=== PATIENT | female | born 1985 | race Caucasian/White ===

== ENCOUNTER → 2017-08-27 16:44 | Outpatient (CLI) | payer OTHER, SELFPAY ==
--- NOTE | 2017-08-27 16:44 | DT_ITS ---
This patient was seen during an EMR downtime August 20, 2017 - August 27, 2017. This patient may have a combination of paper and electronic documentation or all paper documentation. All documentation is viewable within the e-chart portion of [facility] for each patient visit.
--- NOTE | 2017-08-27 17:00 | RAD_ITS ---
STUDY: X-RAY - LEFT FOOT CLINICAL: Female, 32 years old. Pain, recent injury TECHNIQUE: Three view(s) of the foot were obtained. COMPARISON: None. FINDINGS: Bones: There are no acute osseous abnormalities. Joints: The visualized joints are unremarkable. Soft tissues: The soft tissues are unremarkable. Foreign body: None RAD/Foot min 3 Views IMPRESSION: No acute abnormalities are seen. Electronically Signed: Nubia Zuniga MD at 22:49 EDT Tel Direct: [phone], Service support ,
== END ==
PROVIDERS: Family Provider Family Medicine; PCP Family Medicine; Visit Provider Family Medicine
DX: M79.672 Pain in left foot (principal)
CPT/HCPCS: 73630

== ENCOUNTER → 2020-06-21 15:28 | Outpatient (CLI) | payer OTHER, SELFPAY ==
[2014-01-15 07:05] VITALS: BMI 28.8
[2020-06-21 17:51] LABS: Hematocrit 42.6 % (37-47); Hemoglobin 13.7 g/dL (12.0-15.0); Mean Corp Hgb Conc 32.2 g/dL (32-36); Mean Corpuscular Hgb 28.3 pg (27.0-32.0); Mean Platelet Vol. 10.1 fl (6.2-12.0); Platelet Count 339 K/mm3 (150-450); RBC Distribution Width CV 12.6 % (11.6-14.6); RBC Distribution Width SD 39.9 fl (35.1-43.9); Red Blood Count 4.84 M/mm3 (4.2-5.4); White Blood Count 10.2 K/mm3 (4.4-11.0)
[2020-06-21 17:59] LABS: Vitamin D,25 Hydroxy 18.5 ng/mL
[2020-06-23 16:08] LABS: Endomysial Antibody IgA Negative (Negative)
[2020-06-23 18:04] LABS: Immunoglobulin A 139 mg/dL (87-352); t-Transglutaminase IgA 7 U/mL (0-3)
== END ==
PROVIDERS: PCP Family Medicine; Referring Provider Internal Medicine Gastroenterology; Visit Provider Internal Medicine Gastroenterology
DX: R19.7 Diarrhea, unspecified (principal)
CPT/HCPCS: 36415; 82306; 82784; 83516; 85027; 86140; 86255

== ENCOUNTER → 2020-06-23 14:04 | Outpatient (CLI) | payer OTHER, SELFPAY | PROVIDERS: PCP Family Medicine; Referring Provider Internal Medicine Gastroenterology; Visit Provider Internal Medicine Gastroenterology | DX: Z11.52 Encounter for screening for COVID-19 (principal) | CPT/HCPCS: 87635; C9803; U0002 ==

== ENCOUNTER → 2020-06-29 12:49 | Outpatient (CLI) | payer OTHER, SELFPAY ==
[2014-01-15 07:05] VITALS: BMI 28.8
--- NOTE | 2020-06-29 12:56 | BD_ITS ---
STUDY: DUAL ENERGY X-RAY ABSORPTIOMETRY / DXA REASON FOR EXAM: Female, 35 years old. K90.0 -- CELIAC DISEASE TECHNIQUE: Bone Mineral Density (BMD) measurements of lumbar spine and bilateral hips were obtained. COMPARISON: None. FINDINGS: Lumbar Spine (L1-L4): g/cm2 (1.384) / T-score (1.8) / Z-score (1.8) Findings are suggestive of normal bone density with a low fracture risk. Left Femur Total: g/cm2 (1.065) / T-score (0.5) / Z-score (0.6) Left Femoral Neck: g/cm2 (1.038) / T-score (0.0) / Z-score (0.3) Right Femur Total: g/cm2 (1.088) / T-score (0.6) / Z-score (0.8) Right Femoral Neck: g/cm2 (1.058) / T-score (0.1) / Z-score (0.5) BD/Dexa Bone Density Study IMPRESSION: The patient is considered normal as outlined below according to World [employer] Organization (WHO) criteria with a low fracture risk. Reference Information: The T-score is the number of standard deviations above or below the standard which is normal for young adults at their peak bone mineral density. The World Health Organization (WHO) interprets the T-scores as follows: Above -1 Normal bone density Between -1 and -2.5 Osteopenia Equal to / or below -2.5 Osteoporosis As a practical clinical guideline, osteopenia may be graded as follows: Mild -1 through -1.5 Moderate -1.6 through -2.0 Severe -2.1 through -2.4 The Z-score is the number of standard deviations above or below age-matched controls. A Z-score of less than -1.5 would be considered abnormal. References: 1. NIH Osteoporosis and Related Bone Diseases www osteo.org 2. International Society for Clinical Densitometry www iscd.org 3. National Osteoporosis Foundation www nof.org Electronically Signed: Geovany Denis MD at 13:16 EDT , Service support ,
== END ==
PROVIDERS: PCP Family Medicine; Referring Provider Internal Medicine Gastroenterology; Visit Provider Internal Medicine Gastroenterology
DX: K90.0 Celiac disease (principal)
CPT/HCPCS: 77080

== ENCOUNTER 2021-06-12 13:19 | Emergency (ER) | payer OTHER, SELFPAY ==
[2021-06-12 13:19] VITALS: BP 164/96; PULSE 73; RESP 18; TEMP 36.4; O2SAT 98; BMI 36.9
--- NOTE | 2021-06-12 14:40 | RAD_ITS ---
HISTORY: Trauma, injury and pain EXAMINATION/TECHNIQUE: XR Shoulder Min 2 Views: COMPARISON: None FINDINGS: BONES/JOINTS: No acute fracture or dislocation. Preservation of the joint spaces. No sclerotic or destructive changes observed. SOFT TISSUES: No soft tissue swelling or gas. No radiopaque foreign body. RAD/Shoulder min 2 Views IMPRESSION: No acute bony abnormality. at 1614 Reported and signed by: Bj Cleaning MD Electronically Signed: Bj Cleaning MD at 16:12 EDT ,
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
== END 2021-06-12 16:31 | disposition home or self-care (01) ==
PROVIDERS: Emergency Provider Emergency Medicine; PCP Family Medicine; Visit Provider Emergency Medicine
DX: S46.911A Strain of unspecified muscle, fascia and tendon at shoulder and upper arm level, right arm, initial encounter (principal); F17.210 Nicotine dependence, cigarettes, uncomplicated; E66.9 Obesity, unspecified; V43.62XA Car passenger injured in collision with other type car in traffic accident, initial encounter
CPT/HCPCS: 73030; 99282

== ENCOUNTER → 2021-09-10 | Outpatient (CLI) | payer OTHER, SELFPAY ==
[2021-09-10 08:41] LABS: ALB/GLOB Ratio 1.1 RATIO (0.9-2.4); AST(SGOT) 14 U/L (15-37); Alanine Aminotransfer ALT/SGPT 24 U/L (13-56); Albumin, Serum 3.7 g/dL (3.2-5.0); Alkaline Phosphatase 71 U/L (45-117); Anion Gap 5 (5-15); BUN 18 mg/dL (7-18); BUN/Creat Ratio 23.5 RATIO (10-20); Calcium,Total 8.5 mg/dL (8.5-10.1); Chloride 108 mmol/L (98-107); Cholesterol 125 mg/dL (200); Creatinine, Serum 0.77 mg/dL (0.55-1.02); EST Glomerular Filtration Rate 90 mL/min (>60); Est Glom Filt Rate - Afr Amer 109 mL/min (>60); Globulin 3.4 g/dL (2.2-4.2); Glucose 93 mg/dL (74-106); High Density Lipoprotein 45 mg/dL; Potassium 3.9 mmol/L (3.5-5.1); Protein, Total 7.1 g/dL (6.4-8.2); Sodium Level 138 mmol/L (136-145); Triglycerides 55 mg/dL; Very Low Density Lipoprotein 11 mg/dL (5-40)
== END | disposition home or self-care (01) ==
PROVIDERS: PCP Family Medicine; Referring Provider Family Medicine; Visit Provider Family Medicine
DX: Z00.00 Encounter for general adult medical examination without abnormal findings (principal)
CPT/HCPCS: 36415; 80053; 80061

== ENCOUNTER 2021-12-28 20:29 | Emergency (ER) | payer OTHER, SELFPAY ==
[2021-12-28 20:30] VITALS: BP 138/79; PULSE 90; RESP 16; TEMP 36.2; O2SAT 95; BMI 34.0
[2021-12-28 20:33] VITALS: BP 138/79; PULSE 90; RESP 16; TEMP 36.2; O2SAT 95
--- NOTE | 2021-12-28 20:34 | RAD_ITS ---
STUDY: X-RAY CHEST REASON FOR EXAM: Female, 36 years old. SOB TECHNIQUE: Single AP portable view of the chest. COMPARISON: None. FINDINGS: The lungs are clear and expanded. There is no demonstrated pleural abnormality. Normal size heart. Normal mediastinum and vincent. Normal visualized pulmonary arteries. Normal visualized aortic arch and descending thoracic aorta. Normal visualized thoracic spine. Normal visualized ribs, clavicles, and shoulders. There is no demonstrated abnormality of the visualized soft tissue structures of the upper abdomen. RAD/Chest 1 View IMPRESSION: Normal x-ray examination of the chest. Electronically Signed: Rishi Panchal MD at 22:06 EDT ,
--- NOTE | 2021-12-28 21:42 | EX.ED.DYSGE1 ---
HPI History of Present Illness Chief Complaint: Shortness of Breath Informant: patient Onset/Context/Timing Onset: Days Narrative Narrative: Patient presents with chest heaviness and slight shortness of breath for the past week or so. She describes a pressure heavy sensation over the sternal area that is worse with a deep breath. She has had recent URI symptoms but tested negative for COVID. The worsening shortness of breath and chest pressure has been ongoing for the past week or so. She states she will note the pain is worse when she lies on her left side. She has not had recent fever. She is an appointment to see her PCP on the but because pain was worse today she presented to the emergency room. [facility] Medical History Celiac disease Pleurisy Home Medications citalopram 20 mg tablet 20 mg PO DAILY 12/28/21 [History Last Taken Unknown] fluticasone propionate 50 mcg/actuation nasal spray,suspension 2 spray intranasal DAILY 12/28/21 [History Last Taken Unknown] prednisone 20 mg tablet 40 mg PO DAILY #8 tabs 12/28/21 [Rx Last Taken Unknown] tizanidine 4 mg tablet 4 mg PO DAILY 12/28/21 [History Last Taken Unknown] Allergy/AdvReac Type Severity Reaction Status Date / Time amoxicillin [From Augmentin] Allergy Other Verified 12/28/21 20:33 clavulanic acid Allergy Other Verified 12/28/21 20:33 [From Augmentin] montelukast [From Singulair] Allergy Other Verified 06/12/21 13:21 Surgical History Hx of tubal ligation Social History Smoking Status: Current every day smoker tobacco type: cigarettes ROS ROS ED Constitutional Constitutional ED: Denies chills or fever(s) Eyes Eyes: Denies change in vision or discharge from eye(s) ENT ENT ED: Denies discharge from eye(s), rhinorrhea or sore throat Cardiovascular Cardiovascular: Reports chest pain; Denies palpitations Respiratory/Chest Respiratory/Chest: Reports dyspnea; Denies cough Gastrointestinal Gastrointestinal: Denies abdominal pain, diarrhea, nausea or vomiting Genitourinary Genitourinary ED: Denies difficulty urinating or dysuria Musculoskeletal Musculoskeletal: Denies back pain or extremity pain Integumentary Denies Abrasions or rash Neurologic Neurologic: Denies headache(s) or weakness Psychiatric Psychiatric: Denies anxiety or depression Allergic/Immunologic Allergic/Immunologic ED: Denies lip swelling or urticaria EXAM Physical Exam Const Vital Signs: 12/28/21 20:30 12/28/21 20:33 12/28/21 22:01 Temperature 97.1 F L 97.1 F L Temperature Source Temporal Temporal Pulse Rate 90 90 Respiratory Rate 16 16 Respiratory Effort Normal Non-Labored Respiratory Depth Normal Respiratory Pattern Normal Blood Pressure 138/79 H 138/79 H Blood Pressure Mean 98 98 Pulse Ox 95 95 Oxygen Delivery Method Room Air Room Air Positive well nourished and well developed General Appearance ED: well developed HEENT Reports normocephalic and head/scalp atraumatic Eyes PERRL and EOMs intact bilaterally Neck supple Chest Wall inspection of chest normal Chest Narrative: Mild reproducible chest wall tenderness. No crepitus. Resp normal respiratory effort and clear to auscultation bilaterally Cardio regular rate and regular rhythm GI normal to inspection, nondistended, normoactive bowel sounds Palpation: soft Extremity normal to inspection Neuro oriented x3 and no sensory deficits noted Sensorium / Orientation: alert Motor Exam: strength 5/5 throughout Psych mental status grossly normal Skin no rashes or lesions noted MDM MDM MDM Narrative Medical decision making narrative: Patient was given a dose of IV Toradol. EKG, chest x-ray, lab work obtained. Lab Data Attestation: I reviewed the patient's lab results. Labs: Laboratory Results - last 24 hr 12/28/21 12/28/21 12/28/21 21:50 21:50 21:50 WBC 9.0 RBC 4.35 Hgb 12.5 Hct 37.6 MCV 86.4 MCH 28.7 MCHC 33.2 RDW Std Deviation 40.9 RDW Coeff of Vlad 13.0 Plt Count 279 MPV 9.7 Immature Gran % (Auto) 0.200 Neut % (Auto) 66.8 Lymph % (Auto) 21.6 [place] % (Auto) 8.2 Eos % (Auto) 2.8 Baso % (Auto) 0.4 Absolute Neuts (auto) 6.0 Absolute Lymphs (auto) 1.95 Nucleated RBC % 0 D-Dimer Quant (PE/DVT) 0.59 H* Sodium 140 Potassium 3.5 Chloride 108 H Carbon Dioxide 25.0 Anion Gap 7 BUN 14 Creatinine 0.74 Estim Creat Clear Calc 108.78 Est GFR (MDRD) Af Amer 114 Est GFR (MDRD) Non-Af 94 BUN/Creatinine Ratio 19.0 Glucose 93 Calcium 9.1 Troponin I High Sens 4 Serum , Qual 12/28/21 21:50 WBC RBC Hgb Hct MCV MCH MCHC RDW Std Deviation RDW Coeff of Vlad Plt Count MPV Immature Gran % (Auto) Neut % (Auto) Lymph % (Auto) [place] % (Auto) Eos % (Auto) Baso % (Auto) Absolute Neuts (auto) Absolute Lymphs (auto) Nucleated RBC % D-Dimer Quant (PE/DVT) Sodium Potassium Chloride Carbon Dioxide Anion Gap BUN Creatinine Estim Creat Clear Calc Est GFR (MDRD) Af Amer Est GFR (MDRD) Non-Af BUN/Creatinine Ratio Glucose Calcium Troponin I High Sens Serum , Qual NEGATIVE Radiography Diagnostic Testing: Clinical Impression(s) from Imaging Studies Chest X-Ray 12/28/21 20:34 IMPRESSION: Normal x-ray examination of the chest. Electronically Signed: Rishi Panchal MD at 22:06 EDT , Chest CTA 12/28/21 22:19 IMPRESSION: Normal CTA chest examination, without a demonstrated pulmonary embolism or arterial dissection. Electronically Signed: Rishi Panchal MD at 23:09 EDT , EKG Initial EKG: Attestation: I personally reviewed and interpreted this EKG as follows: Interpretation: Sinus Rhythm (Sinus at 76 with no acute ischemia.) Treatment and Re-Evaluation Narrative: On repeat evaluation patient resting comfortably. EKG reveals no acute ischemia. Chest x-ray per my interpretation reveals no focal infiltrate. CBC and chemistry studies unremarkable. Troponin is normal. D-dimer is slightly elevated at 0.59. test negative. Patient is sent for CTA of the chest. This reveals no evidence of pulmonary embolism. No other acute findings noted. Patient does have reproducible tenderness around the sternum with recent viral syndrome. This may represent costochondritis. She will be treated with a short burst of steroids. She has an appointment with her primary care physician on the . Return instructions provided. Discharge Plan Triage Chief Complaint: Shortness of Breath ED Provider: Nubia Giron Dx/Rx/DC Orders Clinical Impression: Costochondritis Instructions: ED Chest Wall Pain, Costochondritis Prescriptions: New prednisone 20 mg tablet 40 mg PO DAILY Qty: 8 0RF No Action tizanidine 4 mg tablet 4 mg PO DAILY Label Comments: take 1 tablet by mouth once daily citalopram 20 mg tablet 20 mg PO DAILY Label Comments: take 1 tablet by mouth once daily fluticasone propionate 50 mcg/actuation spray,suspension 2 spray INTRANASAL DAILY Label Comments: instill 2 sprays into each nostril once daily Primary Care Provider: Germán Mendez Referrals: Germán Mendez DO [Primary Care Provider] - [facility] appointment Disposition Disposition: Home, Self Care
[2021-12-28 21:55] LABS: Absolute Lymphocyte Count 1.95 X10^3/uL (0.83-4.51); Basophil# 0.04 X10^3/uL; Basophil% 0.4 % (0-1); Eosinophil# 0.25 X10^3/uL; Eosinophils% 2.8 % (0-5); Hematocrit 37.6 % (37-47); Hemoglobin 12.5 g/dL (12.0-15.0); Lymphocyte # 1.95 X10^3/ul (0.83-4.51); Lymphocyte % 21.6 % (19-41); Mean Corp Hgb Conc 33.2 g/dL (32-36); Mean Corpuscular Hgb 28.7 pg (27.0-32.0); Mean Corpuscular Volume 86.4 fL (81-99); Mean Platelet Vol. 9.7 fl (6.2-12.0); Monocyte# 0.74 X10^3/uL; Monocyte% 8.2 % (0-10); NRBC Flagged by Analyzer 0 % (0-5); Neutrophil # 6.02 X10^3/uL (2.7-7.7); Neutrophil % 66.8 % (47-70); Platelet Count 279 K/mm3 (150-450); RBC Distribution Width SD 40.9 fl (35.1-43.9); Red Blood Count 4.35 M/mm3 (4.2-5.4)
--- NOTE | 2021-12-28 22:00 | EKG12_ITS ---
Test Reason : DYSRHYTHMIA Blood Pressure : / mmHG Vent. Rate : 076 BPM Atrial Rate : 076 BPM P-R Int : 146 ms QRS Dur : 102 ms QT Int : 418 ms P-R-T Axes : 055 034 034 degrees QTc Int : 470 ms Normal sinus rhythm Normal ECG Confirmed by HIRAM MAX, CHERELLE ([id number]), primer expeditor and drier ARIANA PIRES ([id number]) on 12/29/2021 2:06:37 P M Referred By: LILLIE Confirmed By:KOSTAS GANDHI MD
[2021-12-28 22:07] LABS: Internal QC Validated? YES +Cl - CLEAR BKGD; Pregnancy, Serum, hCG Quali. NEGATIVE Negative
[2021-12-28 22:15] LABS: Anion Gap 7 (5-15); BUN 14 mg/dL (7-18); Calcium,Total 9.1 mg/dL (8.5-10.1); Chloride 108 mmol/L (98-107); Creatinine, Serum 0.74 mg/dL (0.55-1.02); EST Glomerular Filtration Rate 94 mL/min (>60); Est Glom Filt Rate - Afr Amer 114 mL/min (>60); Estimated Creatinine Clearance 108.78 ml/min; Glucose 93 mg/dL (74-106); Potassium 3.5 mmol/L (3.5-5.1); Sodium Level 140 mmol/L (136-145); Troponin-I HS 4 pg/mL (3.0-54.0)
[2021-12-28 22:16] LABS: D-Dimer Quantitative (DVT/PE) 0.59 FEU/ug/m (0.27-0.49)
--- NOTE | 2021-12-28 22:19 | CT_ITS ---
STUDY: CTA CHEST REASON FOR EXAM: Female, 36 years old. CP, dyspnea, elevated d-dimer RADIATION DOSAGE (If Supplied By Facility): CTDIvol = ( 14.21 ) mGy, DLP = ( 525.96 ) mGycm TECHNIQUE: The examination was performed with the intravenous administration of IV 100mL Isovue-370. Post-processing of the angiographic images was performed, with multiplanar reformation and 3D reconstruction. Individualized dose optimization techniques were used for this CT. COMPARISON: Chest x-ray earlier today FINDINGS: Normal enhancement of the main pulmonary artery and right and left pulmonary arteries. Normal enhancement of the bilateral peripheral pulmonary arteries. There is no demonstrated pulmonary embolism. Normal thoracic aorta and visualized great vessels. There is no demonstrated aortic dissection. Normal heart and pericardium. Normal mediastinum. Normal hilar regions. Normal visualized trachea and bronchi. The lungs are well expanded. Normal pulmonary parenchyma. Normal pleura. Normal chest wall structures. Normal osseous structures. Normal visualized upper abdomen. CT/CTA Chest W/WO Contrast IMPRESSION: Normal CTA chest examination, without a demonstrated pulmonary embolism or arterial dissection. Electronically Signed: Rishi Panchal MD at 23:09 EDT ,
[2021-12-28] MEDS: predniSONE 20 MG Tablet 40 MG PO (23:23)
[2021-12-28 23:25] VITALS: BP 134/78; PULSE 79; RESP 16; O2SAT 97
== END 2021-12-28 23:26 | disposition home or self-care (01) ==
PROVIDERS: Emergency Provider Emergency Medicine; PCP Family Medicine; Visit Provider Emergency Medicine
DX: M94.0 Chondrocostal junction syndrome [Tietze] (principal); R06.02 Shortness of breath; F17.210 Nicotine dependence, cigarettes, uncomplicated; Z79.899 Other long term (current) drug therapy
CPT/HCPCS: 71045; 71275; 80048; 84484; 84703; 85025; 85379; 93005; 99285

== ENCOUNTER → 2022-05-24 | Outpatient (CLI) | payer OTHER, SELFPAY ==
[2022-05-24 11:03] LABS: Mucous, Urine 0 SEEN /hpf (<or=2+)
[2022-05-24 11:28] LABS: Color, Urine Yellow (Yellow); Glucose, Dipstick Normal (Normal); Ketone-Dipstick Negative (Negative); Leukocyte Esterase-Dipstick 100 /ul (Negative); Nitrite-Dipstick Negative (Negative); Occult Blood-Urine 150 /ul (Negative); Protein-Dipstick Negative (Negative); Specific Gravity, Urine 1.025 (1.002-1.030); Urine Bilirubin Dipstick Negative (Negative); Urine Clarity Sl. Cloudy (Clear); Urine Urobilinogen Normal (Normal)
[2022-05-24 11:45] LABS: Bacteria 1+ /hpf (None Seen); Red Blood Cells-Urine 10-25 SEEN /hpf (0-5); Squamous Epithelial Cells - UA 5-10 SEEN /hpf (5-10); White Blood Cells 10-25 SEEN /hpf (0-5)
[2022-05-24 11:49] LABS: CPK Total, Creatine Kinase 55 U/L (26-192)
[2022-05-24 12:26] LABS: Hepatitis B Surface Antibody Reactive; Hepatitis B Surface Antigen Non-Reactive (Nonreactive); Hepatitis C Antibody Non-Reactive (Nonreactive)
[2022-05-25 14:09] LABS: Complement C3 130 mg/dL (82-167)
[2022-05-25 19:45] LABS: CCP IgG Antibodies 6 units (0-19); Hepatitis B Core Ab Total Negative (Negative)
== END | disposition home or self-care (01) ==
LOC: LAB 10:54
PROVIDERS: PCP Family Medicine; Referring Provider Internal Medicine Rheumatology; Visit Provider Internal Medicine Rheumatology
DX: R76.0 Raised antibody titer (principal); M79.18 Myalgia, other site
CPT/HCPCS: 36415; 81001; 81002; 82550; 86038; 86160; 86200; 86225; 86235; 86704; 86706; 86803; 87340

== ENCOUNTER → 2022-11-27 | Outpatient (CLI) | payer OTHER, SELFPAY ==
[2022-11-27 07:55] LABS: Ferritin 30 ng/mL (8-252); Iron 63 ug/dL (50-170); Iron Binding Capacity,Total 348 ug/dL (250-450); PERCENT IRON SATURATION 18.1 % (15.0-55.0)
[2022-11-27 12:36] LABS: Vitamin B12 557 pg/mL (211-911)
[2022-11-28 15:08] LABS: Immunoglobulin A 135 mg/dL (87-352); Immunoglobulin G 1038 mg/dL (586-1602); Immunoglobulin M 169 mg/dL (26-217); t-Transglutaminase IgA 8 U/mL (0-3)
[2022-12-15 19:07] LABS: Calprotectin, Stool 382 ug/g (0-120); Fats, Neutral Normal (.); Fats, Total Normal (.)
[2022-12-18 14:09] LABS: Pancreatic Elastase, Fecal 483 (>200)
== END | disposition home or self-care (01) ==
PROVIDERS: PCP Family Medicine
DX: R19.7 Diarrhea, unspecified (principal)
CPT/HCPCS: 36415; 82533; 82607; 82653; 82705; 82728; 82746; 82784; 83516; 83540; 83550; 83993; 87177; 87209; 87506

== ENCOUNTER → 2023-03-09 | Outpatient (CLI) | payer OTHER, SELFPAY ==
[2023-03-09 08:07] LABS: ALB/GLOB Ratio 1.1 RATIO (0.9-2.4); AST(SGOT) 14 U/L (15-37); Alanine Aminotransfer ALT/SGPT 22 U/L (13-56); Albumin, Serum 3.7 g/dL (3.2-5.0); Alkaline Phosphatase 76 U/L (45-117); Anion Gap 4 (5-15); BUN 10 mg/dL (7-18); Calcium,Total 8.9 mg/dL (8.5-10.1); Chloride 109 mmol/L (98-107); Cholesterol 126 mg/dL (200); Creatinine, Serum 0.83 mg/dL (0.55-1.02); EST Glomerular Filtration Rate 81 mL/min (>60); Est Glom Filt Rate - Afr Amer 98 mL/min (>60); Globulin 3.4 g/dL (2.2-4.2); Glucose 92 mg/dL (74-106); High Density Lipoprotein 45 mg/dL; Potassium 3.8 mmol/L (3.5-5.1); Protein, Total 7.1 g/dL (6.4-8.2); Sodium Level 139 mmol/L (136-145); Triglycerides 58 mg/dL; Very Low Density Lipoprotein 12 mg/dL (5-40)
== END | disposition home or self-care (01) ==
LOC: LAB 06:37
PROVIDERS: PCP Family Medicine; Referring Provider Family Medicine; Visit Provider Family Medicine
DX: Z00.00 Encounter for general adult medical examination without abnormal findings (principal)
CPT/HCPCS: 36415; 80053; 80061

== ENCOUNTER → 2023-03-14 | Outpatient (CLI) | payer OTHER, SELFPAY | END | disposition home or self-care (01) | PROVIDERS: PCP Family Medicine | DX: R10.84 Generalized abdominal pain (principal) | CPT/HCPCS: 36415 ==

== ENCOUNTER → 2023-05-08 | Outpatient (CLI) | payer OTHER, SELFPAY ==
--- OUTSIDE RECORDS SUMMARY | 2023-05-08 06:07 | XMS RPT_ITS | CCD ---
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 and oriented to person, place, and time. Cranial Nerves: No cranial nerve deficit. Sensory: No sensory deficit. Motor: No weakness. Coordination: Coordination normal. Gait: Gait normal. Psychiatric: Mood and Affect: Mood normal. Behavior: Behavior normal. Thought Content: Thought content normal. Judgment: Judgment normal. Assessment and Plan ASSESSMENT/PLAN: 1. Lumbar pain on palpation - ICD9: 724.2, ICD10: M54.50 Diffuse lumbar spinal process TTP and paraspinal +straight leg raise left - XR LUMBAR GENERAL 3V AP/LAT/G7-R6-[id number] for acute process - KETOROLAC 60 MG/2 ML INTRAMUSCULAR SOLUTION-provided here in clinic and states improvement of symptoms. No red flags Will follow up with PCP 2. Acute bilateral low back pain with left-sided sciatica - ICD9: 724.2, 724.3, ICD10: M54.42 Sciatica - Ice for localized tenderness - Warm moist heat for 20 min three times a day - Muscle relaxant- Has home Zanaflex RX Prednisone - Patient given instructions use of medications as ordered, intermittent rest, back care exercise program, weight loss, improved posture, proper lifting techniques, intermittent use of heat and avoiding sleeping on a heating pad - Follow up in 3 days or sooner if symptoms persist or worsen BEVERLY Piedra APRN.CNP documented in this encounter [facility] documented in this encounter [facility] Diagnosis Inclusion cyst of vulva- Primary Other specified noninflammatory disorder of vulva and perineum Varicosities of vulva Vulval varices Lichen simplex chronicus Lichenification and lichen simplex chronicus documented [facility] this [facility] Diagnosis Vaginal dryness- Primary Other specified symptom associated with female genital organs Lichen simplex chronicus Lichenification and lichen simplex chronicus Recurrent boils Carbuncle and furuncle of unspecified site [facility] Diagnosis Urinary frequency- Primary documented in this encounter [facility] (narrative)* Diagnostic Procedure Only (Urgent) - Closed Specialty Diagnoses / Procedures Referred By Sharon aguilar Referred To Contact XR IMAGING Diagnoses Lumbar pain on palpation Procedures XR LUMBAR GENERAL 3V AP/LAT/L5-S1 RADEX SPINE LUMBOSACRAL 2/3 VIEWS Lizette Grant, ALLISON.MILITARY PERSONNEL SPECIALIST [address] [place] [address] Xr Imaging Referral ID Status Reason Start Date Expiration Date V isits Requested Visits Authorized [id number] Closed Auto-Generate d Referral 07/14/2021 08/13/2022 1 1 [facility] Medications Administered Section Inactive Administered Medications - up to 3 most recent administrations Medication Order MAR Action Action Date Dose Rate Site keTORolac 60 mg injection (TORADOL) 60 mg, INTRAMUSCULAR, ONCE, 1 dose, On Esha 07/14/21 at 1130, Ketorolac (Toradol) is indicated for the short-term (up to 5 days) management of moderately severe acute pain. Continuation of ketorolac (Toradol) beyond 5 days increases the risk of developing serious adverse events. Please verify the duration of therapy for ketorolac (Toradol)., If ordered PRN for pain, patient/guardian may elect to receive this medication for higher pain levels INSTEAD of the opioid, if preferred: Yes Given 07/14/2021 11:37 AM EDT 60 mg Buttocks, Left Summary Purpose Family History No Family History Records FoundNo Family History Records Found Advance Directives No Advanced Directives Records FoundNo Advanced Directives Records Found Additional Source Comments Source Comments (unrecognize d section and content) In the event this informatio n is protected by the Federal Confidentiality of Alcohol and Drug Abuse Patient Records regulations: The Federal rules restrict any use of the information to criminally investigate or prosecute any alcohol or drug abuse patient.[facility] the event this information is protected by the Federal Confidentiality of Alcohol and Drug Abuse Patient Records regulations: The Federal rules restrict any use of the information to criminally investigate or prosecute any alcohol or drug abuse patient.[facility] the event this information is protected by the Federal Confidentiality of Alcohol and Drug Abuse Patient Records regulations: The Federal rules restrict any use of the information to criminally investigate or prosecute any alcohol or drug abuse patient.[facility] the event this information is protected by the Federal Confidentiality of Alcohol and Drug Abuse Patient Records regulations: The Federal rules restrict any use of the information to criminally investigate or prosecute any alcohol or drug abuse patient.[facility] Reason for Visit (unrecogniz ed section and content) Reason Comments Vaginal Problem Lump on labia-notice d couple months ago pea size- not changed in size- not painful- Reason Comments UTI Frequency in urinati on, back pain Care Teams (unrecognized sec tion and content) Tile Classifier Relationship Specialty Start Date End Date Dotty Mendez DO [address] [place], [place] [id number] PCP - General Family Medicine 05/25/14 Tile Classifier Relationship Specialty Start Date End Date Dotty Mendez DO [address] [place] [address] PCP - General Family Medicine 05/25/14 INFORMATION SOURCE (unrecogn ized section and content) DATE CREATED AUTHOR AUTHOR'S LLOYD FARRELL 02/05/2023 [facility] FOR RECORDS PERTAINING TO PATIENTS WHO ARE OR HAVE BEEN ENROLLED IN A CHEMICAL DEPENDENCY/SUBSTANCEABUSE PROGRAM, SOME INFORMATION MAY BE OMITTED. This clinical summary was aggregated from multiple sources. Caution should be exercised in using it in the provision of clinical care. This summary normalizes information from multiple sources, and as a consequence, information in this document may materially change the coding, format and clinical context of patient data. In addition, data may be omitted in some cases. CLINICAL DECISIONS SHOULD BE BASED ON THE PRIMARY CLINICAL RECORDS. [facility] [employer], [facility]. provides no warranty or guarantee of the accuracy or completeness of information in this document.
[2023-05-08 07:25] LABS: ALB/GLOB Ratio 1.1 RATIO (0.9-2.4); AST(SGOT) 13 U/L (15-37); Alanine Aminotransfer ALT/SGPT 25 U/L (13-56); Albumin, Serum 3.6 g/dL (3.2-5.0); Alkaline Phosphatase 74 U/L (45-117); Anion Gap 4 (5-15); BUN 11 mg/dL (7-18); BUN/Creat Ratio 13.7 RATIO (10-20); Calcium,Total 8.8 mg/dL (8.5-10.1); Chloride 110 mmol/L (98-107); EST Glomerular Filtration Rate 85 mL/min (>60); Est Glom Filt Rate - Afr Amer 102 mL/min (>60); Globulin 3.3 g/dL (2.2-4.2); Glucose 103 mg/dL (74-106); Potassium 3.9 mmol/L (3.5-5.1); Protein, Total 6.9 g/dL (6.4-8.2); Sodium Level 140 mmol/L (136-145)
[2023-05-08 08:30] LABS: Hepatitis B Surface Antibody Reactive; Hepatitis B Surface Antigen Non-Reactive (Nonreactive)
[2023-05-11 11:09] LABS: QNTFERON TB Mitogen Value > 10.00 IU/mL (.); QNTFERON TB Nil Value 0.03 IU/mL (.); QNTFERON TB1+ Ag Value 0.06 IU/mL (.); QNTFERON TB2+ Ag Value 0.06 IU/mL (.); QNTIFERON TB Positive Criteria Negative (Negative)
== END | disposition home or self-care (01) ==
LOC: LAB 06:05
PROVIDERS: PCP Family Medicine
DX: K50.80 Crohn's disease of both small and large intestine without complications (principal); Z79.899 Other long term (current) drug therapy
CPT/HCPCS: 36415; 80053; 86480; 86706; 87340

== ENCOUNTER → 2024-03-08 | Outpatient (CLI) | payer OTHER, SELFPAY ==
[2024-03-08 09:20] LABS: Basophil# 0.02 X10^3/uL; Basophil% 0.3 % (0-1); Eosinophil# 0.11 X10^3/uL; Eosinophils% 1.6 % (0-5); Hematocrit 41.7 % (37-47); Hemoglobin 13.8 g/dL (12.0-15.0); Lymphocyte % 18.9 % (19-41); Mean Corp Hgb Conc 33.1 g/dL (32-36); Mean Corpuscular Volume 87.6 fL (81-99); Mean Platelet Vol. 9.5 fl (6.2-12.0); Monocyte# 0.42 X10^3/uL; Monocyte% 6.1 % (0-10); NRBC Flagged by Analyzer 0 % (0-5); Neutrophil # 5.01 X10^3/uL (2.7-7.7); Neutrophil % 72.8 % (47-70); Platelet Count 295 K/mm3 (150-450); RBC Distribution Width CV 12.3 % (11.6-14.6); RBC Distribution Width SD 39.4 fl (35.1-43.9); Red Blood Count 4.76 M/mm3 (4.2-5.4); White Blood Count 6.9 K/mm3 (4.4-11.0)
[2024-03-08 09:43] LABS: AST(SGOT) 15 U/L (15-37); Alanine Aminotransfer ALT/SGPT 20 U/L (13-56); Albumin, Serum 3.6 g/dL (3.2-5.0); Alkaline Phosphatase 82 U/L (45-117); Anion Gap 4 (5-15); BUN 10 mg/dL (7-18); BUN/Creat Ratio 13.8 RATIO (10-20); Calcium,Total 8.5 mg/dL (8.5-10.1); Chloride 108 mmol/L (98-107); Cholesterol 151 mg/dL (200); Creatinine, Serum 0.72 mg/dL (0.55-1.02); EST Glomerular Filtration Rate 95 mL/min (>60); Est Glom Filt Rate - Afr Amer 115 mL/min (>60); Globulin 3.5 g/dL (2.2-4.2); Glucose 92 mg/dL (74-106); High Density Lipoprotein 61 mg/dL; Potassium 3.9 mmol/L (3.5-5.1); Protein, Total 7.1 g/dL (6.4-8.2); Sodium Level 139 mmol/L (136-145); Triglycerides 48 mg/dL; Very Low Density Lipoprotein 10 mg/dL (5-40)
== END | disposition home or self-care (01) ==
PROVIDERS: PCP Family Medicine
DX: Z00.00 Encounter for general adult medical examination without abnormal findings (principal); K50.10 Crohn's disease of large intestine without complications
CPT/HCPCS: 36415; 80053; 80061; 85025

== ENCOUNTER 2024-03-11 16:13 | Emergency (ER) | payer OTHER, SELFPAY ==
[2024-03-11 16:15] VITALS: BP 139/78; PULSE 84; RESP 15; TEMP 36.7; O2SAT 97; BMI 35.9
--- NOTE | 2024-03-11 16:29 | ED.VIS.CHEST ---
HPI History of Present Illness Chief Complaint: Chest Pain Narrative Narrative: Chief complaint and HPI: Chest tightness. 38-year-old female with history of Crohn's and celiac disease on Stelara infusion presents for evaluation of chest tightness. Patient states she received her third infusion on Sunday of she states that evening she developed chest tightness. She states she does not know if it is a side effect of the medication however she called the infusion center and they recommended her to present to the ED for further evaluation. Patient states her chest tightness has been constant since Sunday. Associated symptoms are cough and nasal congestion. She took a home COVID test that was negative. She denies any fever, chills, shortness of breath, abdominal pain, nausea, vomiting, body aches. She states that this feels different than her sharp pleurisy pain that she periodically gets. Review of systems: See HPI Medications: As listed on the chart Allergies: As listed on the chart PFSH: Per chart Vital signs: As listed on the chart. Reviewed. Physical exam: Gen: A&O x3, NAD Head: Normocephalic, atraumatic Eyes: No sclera icterus, conjunctiva clear ENT: Moist mucous membranes, mild nasal congestion Neck: Trachea midline, No JVD CV: RRR, no murmurs, no peripheral edema Resp: Lungs CTA BL, no w/r/c GI: Abd soft, non-distended, non-tender, no r/r/g Musc: Full ROM, no deformity Skin: Warm, dry Neuro: Alert, oriented, grossly intact, sensation intact Psych: Cooperative, appropriate mood and affect [facility] Medical History (Updated 03/11/24 @ 16:28 by Allie Cee) Acute Crohn's disease Pleurisy Celiac disease Home Medications ?Medication ?Instructions ?Recorded ?Last Taken ?Type citalopram 20 mg tablet 20 mg PO DAILY 12/28/21 Unknown History fluticasone propionate 50 2 spray intranasal DAILY 12/28/21 Unknown History mcg/actuation nasal spray,suspension tizanidine 4 mg tablet 4 mg PO QHS 12/28/21 Unknown History multivitamin (Daily Multi-Vitamin 1 tab PO DAILY 03/11/24 Unknown History tablet) Allergy/AdvReac Type Severity Reaction Status Date / Time gluten Allergy Severe CELIAC Verified 03/11/24 16:14 DISEASE amoxicillin (From Augmentin) Allergy Other Verified 03/11/24 16:14 clavulanic acid (From Allergy Other Verified 03/11/24 16:14 Augmentin) montelukast (From Singulair) Allergy Other Verified 03/11/24 16:14 ciprofloxacin (From Cipro) AdvReac Mild VERTIGO Verified 03/11/24 16:14 Surgical History Hx of tubal ligation Social History Smoking Status: Former smoker EXAM Physical Exam Const Vital Signs: 03/11/24 16:15 03/11/24 16:30 03/11/24 17:34 Temperature 98.1 F 98.1 F Temperature Source Oral Oral Pulse Rate 84 75 67 Respiratory Rate 15 18 22 H Blood Pressure 139/78 H 130/77 H 131/73 H Blood Pressure Mean 98 94 92 Pulse Ox 97 96 98 Oxygen Delivery Method Room Air Room Air Room Air MDM MDM MDM Narrative Medical decision making narrative: 38-year-old female with history of Crohn's and celiac disease on Stelara infusion presents for evaluation of chest tightness. Chest tightness has been ongoing since Sunday after infusion. Associated symptoms are nasal congestion and cough. Differential diagnosis includes but is not limited to medication side effect, viral illness, pneumonia. Suspect less likely ACS or PE. Patient declined pain medication. She has not taken anything at home either. Chest pain workup ordered. CBC with mild leukocytosis 11. 7. No anemia. BMP relatively unremarkable. Troponin unremarkable. BNP unremarkable. D-dimer elevated to 0.57. This is higher than patient's age-adjusted. Her previous D-dimer was 0.59 in 2021. This may be her baseline due to her Crohn's disease however with her chest tightness cannot rule out PE with elevated dimer therefore CTA chest ordered to assess for PE. Patient consented. CTA negative for PE or dissection. No pneumonia. At this point in time, no clear etiology for patient's chest tightness. May be secondary to viral illness versus medication side effect. Patient has a low heart score. Low suspicion for ACS especially as troponin is unremarkable and pain has been ongoing for several days. Patient was updated of all the results and the plan for discharge home. Motrin Tylenol as needed for pain. Return precautions explained. Follow-up with PCP. She confirmed understand the plan. Patient stable to discharge home EKG: Interpreted by me/EM physician: EKG shows normal sinus rhythm with incomplete right bundle branch block. No acute ischemic changes. This is similar to her previous EKG in 2021 Diagnostic: Interpreted by me/EM physician: Chest x-ray without pneumonia, effusion, cardiomegaly, pneumothorax Impression: 1. Chest tightness 2. Viral syndrome Lab Data Labs: Laboratory Results - last 24 hr 03/11/24 16:50 WBC 11.7 H RBC 4.59 Hgb 13.3 Hct 40.5 MCV 88.2 MCH 29.0 MCHC 32.8 RDW Std Deviation 40.1 RDW Coeff of Vlad 12.5 Plt Count 270 MPV 9.5 Immature Gran % (Auto) 0.300 Neut % (Auto) 74.7 H Lymph % (Auto) 15.7 L Ford % (Auto) 6.8 Eos % (Auto) 2.1 Baso % (Auto) 0.4 Absolute Neuts (auto) 8.7 H Absolute Lymphs (auto) 1.83 Nucleated RBC % 0 D-Dimer Quant (PE/DVT) 0.57 H* Sodium 140 Potassium 3.6 Chloride 108 H Carbon Dioxide 28.0 Anion Gap 4 L BUN 12 Creatinine 0.79 Estim Creat Clear Calc 126.49 Est GFR (MDRD) Af Amer 103 Est GFR (MDRD) Non-Af 85 BUN/Creatinine Ratio 15.1 Glucose 107 H Calcium 9.0 Troponin I High Sens 3 B-Natriuretic Peptide 30.7 Radiography Diagnostic Testing: Clinical Impression(s) from Imaging Studies Chest X-Ray 03/11/24 16:40 IMPRESSION: No radiographic evidence of acute cardiopulmonary disease. Electronically Signed: Clayton Wilhelm DO at 17:47 EST , Chest CTA 03/11/24 17:16 IMPRESSION: Normal CTA chest examination, without a demonstrated pulmonary embolism or arterial dissection. Electronically Signed: Clayton Wilhelm DO at 17:45 EST , Discharge Plan Triage Chief Complaint: Chest Pain ED Provider: Shon Aguilar Dx/Rx/DC Orders Instructions: Chest Pain [facility] Prescriptions: No Action tizanidine 4 mg tablet 4 mg PO QHS Patient Comments: take 1 tablet by mouth once daily citalopram 20 mg tablet 20 mg PO DAILY Patient Comments: take 1 tablet by mouth once daily fluticasone propionate 50 mcg/actuation spray,suspension 2 spray INTRANASAL DAILY Patient Comments: instill 2 sprays into each nostril once daily multivitamin [Daily Multi-Vitamin] Tablet 1 tab PO DAILY Primary Care Provider: Germán Mendez Referrals: Germán Mendez DO [Primary Care Provider] - 3-5 Days Activity Restrictions/Additional Instructions: Return back to the ED if symptoms change or worsen. Print Language: Greenlandic Disposition Disposition: Home, Self Care
[2024-03-11 16:30] VITALS: BP 130/77; PULSE 75; RESP 18; O2SAT 96
--- NOTE | 2024-03-11 16:34 | EKG12_ITS ---
Test Reason : CHEST PAIN Blood Pressure : */* mmHG Vent. Rate : 78 BPM Atrial Rate : 78 BPM P-R Int : 142 ms QRS Dur : 98 ms QT Int : 410 ms P-R-T Axes : 65 16 27 degrees QTcB Int : 467 ms Normal sinus rhythm Incomplete right bundle branch block Cannot rule out Anterior infarct , age undetermined Abnormal ECG Confirmed by FRANCIA MAX, MARY BETH ([id number]), makeup editor ARIANA PIRES ([id number]) on 03/13/2024 2:16:51 PM Referred By: Confirmed By: MARY BETH FELDMAN MD
--- NOTE | 2024-03-11 16:40 | RAD_ITS ---
INDICATION: chest pain EXAMINATION/TECHNIQUE: X-RAY - XR Chest 2 Views COMPARISON: FINDINGS: LINES/DEVICES: None. LUNGS: No consolidation, edema or effusion. No pneumothorax. MEDIASTINUM AND CARDIOVASCULAR STRUCTURES: Cardiac silhouette not enlarged. Central airways and mediastinal contour are unremarkable. BONES AND SOFT TISSUES: Unremarkable. RAD/Chest PA and Lateral IMPRESSION: No radiographic evidence of acute cardiopulmonary disease. Electronically Signed: Clayton Wilhelm DO at 17:47 EST Reading Location ID and State: [facility] / [place] Tel [phone], Service support ,
[2024-03-11 17:00] LABS: Absolute Lymphocyte Count 1.83 X10^3/uL (0.83-4.51); Absolute Neutrophil Count 8.7 X10^3/uL (2.0-7.7); Basophil# 0.05 X10^3/uL; Basophil% 0.4 % (0-1); Eosinophil# 0.25 X10^3/uL; Eosinophils% 2.1 % (0-5); Hematocrit 40.5 % (37-47); Hemoglobin 13.3 g/dL (12.0-15.0); Lymphocyte # 1.83 X10^3/ul (0.83-4.51); Lymphocyte % 15.7 % (19-41); Mean Corp Hgb Conc 32.8 g/dL (32-36); Mean Corpuscular Volume 88.2 fL (81-99); Mean Platelet Vol. 9.5 fl (6.2-12.0); Monocyte# 0.79 X10^3/uL; Monocyte% 6.8 % (0-10); NRBC Flagged by Analyzer 0 % (0-5); Neutrophil # 8.72 X10^3/uL (2.7-7.7); Neutrophil % 74.7 % (47-70); Platelet Count 270 K/mm3 (150-450); RBC Distribution Width CV 12.5 % (11.6-14.6); RBC Distribution Width SD 40.1 fl (35.1-43.9); Red Blood Count 4.59 M/mm3 (4.2-5.4); White Blood Count 11.7 K/mm3 (4.4-11.0)
[2024-03-11 17:14] LABS: D-Dimer Quantitative (DVT/PE) 0.57 FEU/ug/m (0.27-0.49)
--- NOTE | 2024-03-11 17:16 | CT_ITS ---
STUDY: CTA CHEST REASON FOR EXAM: Female, 38 years old. assess for PE RADIATION DOSAGE (If Supplied By Facility): CTDIvol = ( 13.34 ) mGy, DLP = ( 533.18 ) mGycm TECHNIQUE: The examination was performed with the intravenous administration of IV 100mL Isovue-370. Post-processing of the angiographic images was performed, with multiplanar reformation and 3D reconstruction. The protocol utilizes one or more of the following dose reduction techniques: automated exposure control, adjustment of mA and/or kV according to patient size,and/or use of iterative reconstruction technique. COMPARISON: FINDINGS: Normal enhancement of the main pulmonary artery and right and left pulmonary arteries. Normal enhancement of the bilateral peripheral pulmonary arteries. There is no demonstrated pulmonary embolism. Normal thoracic aorta and visualized great vessels. There is no demonstrated aortic dissection. Normal heart and pericardium. Normal mediastinum. Normal hilar regions. Normal visualized trachea and bronchi. The lungs are well expanded. Normal pulmonary parenchyma. Normal pleura. Normal chest wall structures. Normal osseous structures. Normal visualized upper abdomen. CT/CTA Chest W/WO Contrast IMPRESSION: Normal CTA chest examination, without a demonstrated pulmonary embolism or arterial dissection. Electronically Signed: Clayton Wilhelm DO at 17:45 RUST ,
[2024-03-11 17:19] LABS: Anion Gap 4 (5-15); BNP,B-Type NATRIURETIC PEPTIDE 30.7 pg/mL (0-100); BUN 12 mg/dL (7-18); BUN/Creat Ratio 15.1 RATIO (10-20); Chloride 108 mmol/L (98-107); Creatinine, Serum 0.79 mg/dL (0.55-1.02); EST Glomerular Filtration Rate 85 mL/min (>60); Est Glom Filt Rate - Afr Amer 103 mL/min (>60); Estimated Creatinine Clearance 126.49 ml/min; Glucose 107 mg/dL (74-106); Potassium 3.6 mmol/L (3.5-5.1); Sodium Level 140 mmol/L (136-145); Troponin-I HS 3 pg/mL (3.0-54.0)
[2024-03-11 17:34] VITALS: BP 131/73; PULSE 67; RESP 22; TEMP 36.7; O2SAT 98
== END 2024-03-11 18:11 | disposition home or self-care (01) ==
PROVIDERS: Emergency Provider Surgery; PCP Family Medicine; Visit Provider Surgery
DX: R07.89 Other chest pain (principal); K50.90 Crohn's disease, unspecified, without complications; B34.9 Viral infection, unspecified; Z87.891 Personal history of nicotine dependence; Z79.899 Other long term (current) drug therapy
CPT/HCPCS: 71046; 71275; 80048; 83880; 84484; 85025; 85379; 93005; 99283; Q9967; A4216

== ENCOUNTER → 2024-09-18 | Outpatient (CLI) | payer OTHER, SELFPAY ==
[2024-09-18 09:29] LABS: Hematocrit 42.6 % (37-47); Hemoglobin 14.3 g/dL (12.0-15.0); Mean Corp Hgb Conc 33.6 g/dL (32-36); Mean Corpuscular Volume 86.6 fL (81-99); Mean Platelet Vol. 9.6 fl (6.2-12.0); Platelet Count 335 K/mm3 (150-450); RBC Distribution Width CV 12.4 % (11.6-14.6); RBC Distribution Width SD 38.6 fl (35.1-43.9); Red Blood Count 4.92 M/mm3 (4.2-5.4); White Blood Count 7.6 K/mm3 (4.4-11.0)
[2024-09-18 09:53] LABS: AST(SGOT) 20 U/L (<=31); Alanine Aminotransfer ALT/SGPT 20 U/L (<=34); Albumin, Serum 4.2 g/dL (3.5-5.0); Alkaline Phosphatase 83 U/L (35-104); Anion Gap 10 (5-15); BUN 9 mg/dL (4-19); BUN/Creat Ratio 12.2 RATIO (10-20); Calcium,Total 8.8 mg/dL (7.6-11.0); Carbon Dioxide 22.0 mmol/L (21.0-32.0); Chloride 105 mmol/L (98-108); Globulin 2.9 g/dL (2.2-4.2); Glucose 105 mg/dL (70-99); Potassium 4.2 mmol/L (3.3-5.1)
== END | disposition home or self-care (01) ==
LOC: LAB 08:54
PROVIDERS: PCP Family Medicine
DX: K50.10 Crohn's disease of large intestine without complications (principal); K90.0 Celiac disease; K21.9 Gastro-esophageal reflux disease without esophagitis
CPT/HCPCS: 36415; 80053; 85027